=== PATIENT | male | born 1960 | race Caucasian/White ===

== ENCOUNTER 2020-09-07 10:21 | Emergency (ER) | payer SELFPAY ==
[2020-09-07] MEDS ORDERED: NA CHLORIDE 0.9% 500 ML ONE (12:06)
[2020-09-07] MEDS ORDERED: FOLIC ACID 5 MG/ML VIAL ONE (12:09)
--- NOTE | 2020-09-07 12:12 | RAD REPORT ---
EXAM DESCRIPTION: CT - Head Brain Wo Cont - 09/07/2020 11:53 am CLINICAL HISTORY: Visual disturbances;Headache COMPARISON: No comparisons TECHNIQUE: Axial 5 mm thick images of the head were obtained without IV contrast. All CT scans are performed using dose optimization technique as appropriate and may include automated exposure control or mA/KV adjustment according to patient size. FINDINGS: No intracranial hemorrhage, mass, edema or shift of mid-line structures. No acute infarcti on changes seen. No abnormal extra-axial fluid collections. Ventricles are normal. Mastoid air cells and visualized portions of the paranasal sinuses are clear. No acute bony findings. IMPRESSION: Negative non-contrast CT head examination.
[2020-09-07 12:30] LABS: Absolute Lymphocytes (CBC) 1.4 K/uL (0.7-4.9); Basophils % 0.8 % (0-1.3); Hematocrit 48.5 % (39.6-49.0); Lymphocytes % 19.3 % (15.3-44.8); MPV 8.7 fL (7.6-11.3); Protime INR 1.19; RBC Red Blood Cell Count 5.36 M/uL (4.33-5.43)
[2020-09-07 12:44] LABS: ALT/SGPT 29 U/L (12-78); AST/SGOT 13 U/L (15-37); Albumin 3.7 g/dL (3.4-5.0); Alkaline Phosphatase 66 U/L (45-117); BUN Blood Urea Nitrogen 18 mg/dL (7-18); Bicarbonate 32 mmol/L (21-32); Bilirubin Direct 0.2 mg/dL (0-0.2); Bilirubin Total 0.6 mg/dL (0.2-1.0); Glucose Level 101 mg/dL (74-106); Magnesium 2.3 mg/dL (1.8-2.4); NT PRO-BNP 273 pg/mL (<125); Potassium 3.4 mmol/L (3.5-5.1); Protein, Total 7.3 g/dL (6.4-8.2); Sodium Level 141 mmol/L (136-145); Troponin (Emerg Dept Use Only) < 0.02 ng/mL (0.0-0.045)
--- NOTE | 2020-09-07 13:05 | RAD REPORT ---
EXAM DESCRIPTION: RAD - Chest Single View - 09/07/2020 12:57 pm CLINICAL HISTORY: COUGH Chest pain. COMPARISON: <Comparisons> FINDINGS: Portable technique limits examination quality. The lungs are grossly clear. The heart is normal in size. No displaced fractures.Sternotomy wires pre sent. IMPRESSION: No acute intrathoracic process suspected.
[2020-09-07] MEDS ORDERED: ASPIRIN 81 MG CHEWABLE TABLET ONE (13:55)
[2020-09-07] MEDS ORDERED: SMZ./TMP. 800/160 MG TABLET ONE (13:56)
[2020-09-07] MEDS ORDERED: DOXYCYCLINE 100 MG CAP PO ONE (13:56)
--- NOTE | 2020-09-07 14:02 | RAD REPORT ---
EXAM DESCRIPTION: MRI - Brain Wo Cont - 09/07/2020 1:53 pm CLINICAL HISTORY: DIPLOPIA;Headache Headache, drowsiness COMPARISON: Head Brain Wo Cont dated 09/07/2020 TECHNIQUE: Multi-sequence, multiplanar MR imaging of the brain was performed without contrast. FINDINGS: No intracranial hemorrhage, hydrocephalus or extra-axial fluid collections. No edema or sh ift of midline structures. No findings to suspect brain mass. DWI is negative for acute CVA. Midline structures are normally formed. 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 Mastoid air cells and paranasal sinuses are clear. IMPRESSION: Negative for acute CVA or other acute intracranial. 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
--- NOTE | 2020-09-07 14:28 | ER ---
Nurse's Notes [facility] Name: Ravi Sanchez Age: 59 yrs Sex: Male : 1960 Arrival Date: 09/07/2020 Time: 10:23 Bed 19 Private MD: Diagnosis: Cellulitis and acute lymphangitis of other sites-right scalp;Occlusion and stenosis of right carotid artery-internal;Diplopia;Obesity, unspecified;Tobacco abuse counseling;Tobacco use Presentation: 09/07 10:45 Chief complaint: Patient states: "I just want to get this checked out that is growing sv on the side of my head for a few weeks now." Denies injury. Reports yesterday he had double vision but none today. Coronavirus screen: Client denies travel out of the [place] in the last 14 days. At this time, the client does not indicate any symptoms associated with coronavirus-19. Ebola Screen: No symptoms or risks identified at this time. Risk Assessment: Do you want to hurt yourself or someone else? Patient reports no desire to harm self or others. Onset of symptoms was August 2020. 10:45 Method Of Arrival: Ambulatory sv 10:45 Acuity: SAMY 4 sv 10:46 Initial Sepsis Screen: Does the patient meet any 2 criteria? No. Patient's initial sv sepsis screen is negative. Does the patient have a suspected source of infection? No. Patient's initial sepsis screen is negative. Triage Assessment: 10:48 General: Appears in no apparent distress. comfortable, Behavior is calm, cooperative, sv appropriate for age. Neuro: Level of Consciousness is awake, alert, obeys commands, Oriented to person, place, time, situation, Gait is steady. Respiratory: Respiratory effort is even, unlabored. Historical: - Allergies: 10:46 PENICILLINS; sv - Immunization history:: Client reports having NOT received the Covid vaccine. - Social history:: Smoking status: Patient reports the use of cigarette tobacco products, smokes 1.5 packs per day. - Family history:: not pertinent. Screenin:22 Abuse screen: Denies threats or abuse. Nutritional screening: No deficits noted. ap3 Tuberculosis screening: No symptoms or risk factors identified. Fall Risk None identified. Assessment: 11:20 General: Appears in no apparent distress. comfortable, Behavior is calm, cooperative, ap3 appropriate for age. Pain: Denies pain. Neuro: Level of Consciousness is awake, alert, obeys commands, Oriented to person, place, time, situation, Gait is steady. Cardiovascular: Capillary refill < 3 seconds. Respiratory: Airway is patent Respiratory effort is even, unlabored, Respiratory pattern is regular, symmetrical. GI: No signs and/or symptoms were reported involving the gastrointestinal system. : No signs and/or symptoms were reported regarding the genitourinary system. EENT: No signs and/or symptoms were reported regarding the EENT system. Derm: Skin is pink, warm \\T\\ dry. Wound noted right temporal area Wound is reddened raised area. Musculoskeletal: No signs and/or symptoms reported regarding the musculoskeletal system. 12:23 Reassessment: left arm BP 153/80 with a pulse of 57, right arm BP 153/90 with a pulse ap3 of 66. 14:50 General: PATIENT WENT TO PERSONAL VEHICLE TO GET MEDICATION LIST. ap3 Vital Signs: 10:46 BP 153 / 80; Pulse 77; Resp 18; Temp 98.7; Pulse Ox 99% ; Weight 120.2 kg; Height 6 ft. sv 2 in. (187.96 cm); 12:19 BP 153 / 90; Pulse 66; Pulse Ox 98% on R/A; Pain 0/10; ap3 10:46 Body Mass Index 34.02 (120.20 kg, 187.96 cm) sv [place] Coma Score: 11:47 Eye Response: spontaneous(4). Verbal Response: oriented(5). Motor Response: obeys [facility] commands(6). Total: 15. NIH Stroke Scale Scores: 14:22 NIHSS Score: 0 [facility] ED Course: 10:23 Patient arrived in ED. mr 10:45 Arm band placed on. sv 10:46 Triage completed. sv 11:11 Dayan Montenegro, RN is Primary Nurse. ap3 11:23 Patient has correct armband on for positive identification. Bed in low position. Call ap3 light in reach. Side rails up X 1. Pulse ox on. NIBP on. Door closed. Noise minimized. 11:29 Paresh Davies MD is Attending Physician. [facility] 11:44 EKG done, by ED staff, reviewed by Paresh Davies MD. [facility] 11:50 Inserted saline lock: 20 gauge in left antecubital area, using aseptic technique. Blood ap3 collected. 11:52 CT Head Brain wo Cont In Process Unspecified. EDMS 12:57 XRAY Chest (1 view) In Process Unspecified. EDMS 13:09 Patient moved to MRI via stretcher. ap3 13:53 Brain Wo Cont In Process Unspecified. EDMS 14:27 Ji Monterroso MD is Referral Physician. monika 14:27 Hipolito Morfin MD is Referral Physician. monika 15:11 Hipolito Morfin MD is Referral Physician. monika 15:32 No provider procedures requiring assistance completed. IV discontinued, intact, ap3 bleeding controlled, No redness/swelling at site. Pressure dressing applied. Administered Medications: 12:17 Drug: NS 0.9% 500 ml Route: IV; Rate: bolus; Site: left antecubital; ap3 15:34 Follow up: Response: No adverse reaction; IV Status: Completed infusion ap3 12:17 Drug: foLIC Acid 1 mg Route: IVPB; Site: left antecubital; ap3 15:34 Follow up: Response: No adverse reaction ap3 15:34 Follow up: IV Status: Completed infusion ap3 14:19 Not Given (Patient Refused): Aspirin Chewable Tablet 324 mg PO once; 81 mg tablets x 4 ap3 14:20 Drug: Bactrim (trimethoprim-sulfamethoxazole) (160 mg-800 mg (DS) 1 tablet Route: PO; ap3 15:18 Follow up: Response: No adverse reaction ap3 14:20 Drug: Doxycycline 100 mg Route: PO; ap3 15:18 Follow up: Response: No adverse reaction ap3 15:17 Not Given (Patient Refused): PlaVIX (clopidogrel) 75 mg PO once ap3 15:17 Not Given (Patient Refused): Lipitor (atorvastatin) 20 mg PO once ap3 15:18 Not Given (Patient Refused): Potassium Effervescent Tablet 25 mEq PO once; dissolve in ap3 4 ounces of water or juice 15:31 Drug: PlaVIX (clopidogrel) 75 mg Route: PO; ap3 15:31 Follow up: Response: No adverse reaction ap3 Outcome: 14:27 Discharge ordered by . monika 14:30 ER care complete, transfer ordered by . monika 15:32 AMA AMA form signed ap3 15:32 Condition: stable 15:32 Discharge instructions given to patient, Instructed on follow up and referral plans. the need for transfer, medication usage, Demonstrated understanding of instructions, follow-up care, medications, Prescriptions given X 4. 15:35 Patient left the ED. ap3 NIH Stroke Scale - NIH Stroke Score Date: 09/07/2020 Time: 14:22 Total Score = 0 1a. Level of Consciousness (LOC) - 0(Alert) 1b. Level of Consciousness (LOC) (Year \\T\\ Age) - 0(Both) 1c. LOC Commands (Open \\T\\ Closes Eyes/Valve Setter) - 0(Both) 2. Best Gaze (Lateral Gaze Paresis) - 0(Normal) 3. Visual Field Loss - 0(No visual loss) 4. Facial Palsy - 0(Normal) 5a. Left Arm: Motor (10-second hold) - 0(No drift) 5b. Right Arm: Motor (10-second hold) - 0(No drift) 6a. Left Leg: Motor (5-second hold - always test supine) - 0(No drift) 6b. Right Leg: Motor (5-second hold - always test supine) - 0(No drift) 7. Limb Ataxia (finger/nose \\T\\ heel/silver - test with eyes open) - 0(Absent) 8. Sensory Loss (pinprick arms/legs/face) - 0(Normal) 9. Best Language: Aphasia (description/naming/reading) - 0(No aphasia) 10. Dysarthria (speech clarity - read or repeat words) - 0(Normal) 11. Extinction and Inattention (visual/tactile/auditory/spatial/personal) - 0(No abnormality) Initials: monika Signatures: Dispatcher [employer] Stephenie Pagan RN RN sv Anderson, Corey, MD MD cha Rivera, Roshni mr Liu Candace 5 Dayan Montenegro RN RN ap3 Corrections: (The following items were deleted from the chart) 10:48 10:45 Chief complaint: Patient states: "I just want to get this checked out sv that is growing on the side of my head for a few weeks now." Denies injury sv 11:04 10:46 Pulse 77bpm; Resp 18bpm; Pulse Ox 99%; Temp 98.7F; 120.2 kg; Height 6 ft. sv 2 in.; BMI: 34.0; sv
--- NOTE | 2020-09-07 14:28 | EDPHYS ---
Physician Documentation [facility] Name: Ravi Sanchez Age: 59 yrs Sex: Male : 1960 Arrival Date: 09/07/2020 Time: 10:23 Bed 19 Private MD: ALICIA Physician Paresh Davies HPI: 09/07 11:40 This 59 yrs old Male presents to ER via Ambulatory with complaints of Lump on monika Head. 11:40 The patient complains of pain to the right buddhism, right frontal area and right monika temporal area. The patient describes the headache as constant. Onset: The symptoms/episode began/occurred 2 day(s) ago. The patient's problem is reported as weakness, DOUBLE VISION 15 MIN YESTERDAY. Onset: The symptoms/episode began/occurred 1 day(s) ago. Duration: The episodes are intermittent. The symptoms are alleviated by nothing. The symptoms are aggravated by nothing. Associated signs and symptoms: Pertinent positives: double vision. Historical: - Allergies: 10:46 PENICILLINS; sv - Immunization history:: Client reports having NOT received the Covid vaccine. - Social history:: Smoking status: Patient reports the use of cigarette tobacco products, smokes 1.5 packs per day. - Family history:: not pertinent. ROS: 11:40 Constitutional: Negative for fever, chills, and weight loss, Eyes: Negative for injury, monika pain, redness, and discharge, ENT: Negative for injury, pain, and discharge, Neck: Negative for injury, pain, and swelling, Cardiovascular: Negative for chest pain, palpitations, and edema, Respiratory: Negative for shortness of breath, cough, wheezing, and pleuritic chest pain, Abdomen/GI: Negative for abdominal pain, nausea, vomiting, diarrhea, and constipation, Back: Negative for injury and pain, : Negative for injury, bleeding, discharge, and swelling, MS/Extremity: Negative for injury and deformity, Neuro: Negative for headache, weakness, numbness, tingling, and seizure, Psych: Negative for depression, anxiety, suicide ideation, homicidal ideation, and hallucinations, Allergy/Immunology: Negative for hives, rash, and allergies, Endocrine: Negative for neck swelling, polydipsia, polyuria, polyphagia, and marked weight changes, Hematologic/Lymphatic: Negative for swollen nodes, abnormal bleeding, and unusual bruising. 11:40 Skin: Positive for erythema, swelling, of the right frontal area and right buddhism. Exam: 11:40 Constitutional: This is a well developed, well nourished patient who is awake, alert, monika and in no acute distress. Eyes: Pupils equal round and reactive to light, extra-ocular motions intact. Lids and lashes normal. Conjunctiva and sclera are non-icteric and not injected. Cornea within normal limits. Periorbital areas with no swelling, redness, or edema. ENT: Nares patent. No nasal discharge, no septal abnormalities noted. Tympanic membranes are normal and external auditory canals are clear. Oropharynx with no redness, swelling, or masses, exudates, or evidence of obstruction, uvula midline. Mucous membranes moist. Neck: Trachea midline, no thyromegaly or masses palpated, and no cervical lymphadenopathy. Supple, full range of motion without nuchal rigidity, or vertebral point tenderness. No Meningismus. Chest/axilla: Normal chest wall appearance and motion. Nontender with no deformity. No lesions are appreciated. Cardiovascular: Regular rate and rhythm with a normal S1 and S2. No gallops, murmurs, or rubs. Normal PMI, no JVD. No pulse deficits. Respiratory: Lungs have equal breath sounds bilaterally, clear to auscultation and percussion. No rales, rhonchi or wheezes noted. No increased work of breathing, no retractions or nasal flaring. Abdomen/GI: Soft, non-tender, with normal bowel sounds. No distension or tympany. No guarding or rebound. No evidence of tenderness throughout. Back: No spinal tenderness. No costovertebral tenderness. Full range of motion. Male : Normal genitalia with no discharge or lesions. Skin: Warm, dry with normal turgor. Normal color with no rashes, no lesions, and no evidence of cellulitis. MS/ Extremity: Pulses equal, no cyanosis. Neurovascular intact. Full, normal range of motion. Neuro: Awake and alert, GCS 15, oriented to person, place, time, and situation. Cranial nerves II-XII grossly intact. Motor strength 5/5 in all extremities. Sensory grossly intact. Cerebellar exam normal. Normal gait. Psych: Awake, alert, with orientation to person, place and time. Behavior, mood, and affect are within normal limits. 11:40 Head/face: Noted is erythema, that is mild, of the right buddhism, right frontal area and right temporal area. 11:40 Eyes: Periorbital structures: appear normal, no acute changes, Pupils: no acute changes, equal, round, and reactive to light and accomodation, Extraocular movements: intact throughout, Conjunctiva: normal, no acute changes, Corneas: are normal, no acute changes, Sclera: no appreciated abnormality, no acute changes, Anterior chamber: normal, no acute changes, Lids and lashes: appear normal, no acute changes, funduscopic exam reveals no obvious abnormalities, no acute changes, Visual shirley: are intact, no acute changes, Nystagmus: nystagmus with fast component noted, bilaterally. 11:51 Radiologist reports: SEE REPORT monika 12:10 ECG was reviewed by the Attending Physician. [facility] Vital Signs: 10:46 BP 153 / 80; Pulse 77; Resp 18; Temp 98.7; Pulse Ox 99% ; Weight 120.2 kg; Height 6 ft. sv 2 in. (187.96 cm); 12:19 BP 153 / 90; Pulse 66; Pulse Ox 98% on R/A; Pain 0/10; ap3 10:46 Body Mass Index 34.02 (120.20 kg, 187.96 cm) sv NIH Stroke Scale Scores: 14:22 NIHSS Score: 0 monika Mariela Coma Score: 11:47 Eye Response: spontaneous(4). Verbal Response: oriented(5). Motor Response: obeys [facility] commands(6). Total: 15. MDM: 11:29 Patient medically screened. monika 11:47 Differential diagnosis: cluster headache, cerebral vascular accident, hypertensive monika headache, hyponatremia, neoplasm, subdural hematoma, tension headache. Data reviewed: vital signs, nurses notes, lab test result(s), EKG, radiologic studies, CT scan, MRI, plain films. Data interpreted: radiation monitor: not applicable for this patient encounter. Pulse oximetry: on room air is 99 %. Test interpretation: by ED physician or midlevel provider: ECG, plain radiologic studies. Counseling: I had a detailed discussion with the patient and/or guardian regarding: the historical points, exam findings, and any diagnostic results supporting the discharge/admit diagnosis, lab results, radiology results. 09/07 11:39 Order name: Basic Metabolic Panel; Complete Time: 13:23 [facility] 09/07 11:39 Order name: CBC with Diff; Complete Time: 13:23 [facility] 09/07 11:39 Order name: LFT's; Complete Time: 13:23 [facility] 09/07 11:39 Order name: Magnesium; Complete Time: 13:23 [facility] 09/07 11:39 Order name: NT PRO-BNP; Complete Time: 13:23 [facility] 09/07 11:39 Order name: PT-INR; Complete Time: 13:23 [facility] 09/07 11:39 Order name: Troponin (emerg Dept Use Only); Complete Time: 13:23 [facility] 09/07 11:39 Order name: XRAY Chest (1 view); Complete Time: 13:23 [facility] 09/07 11:39 Order name: CT Head Brain wo Cont; Complete Time: 13:23 [facility] 09/07 12:58 Order name: Brain Wo Cont; Complete Time: 14:20 EDMS 09/07 14:27 Order name: COVID-19 : Document "Date of Symptom Onset" if Symptomatic. [facility] 09/07 11:39 Order name: EKG; Complete Time: 11:40 [facility] 09/07 11:39 Order name: Cardiac monitoring; Complete Time: 11:44 [facility] 09/07 11:39 Order name: EKG - Nurse/Tech; Complete Time: 12:18 [facility] 09/07 11:39 Order name: IV Saline Lock; Complete Time: 12:18 [facility] 09/07 11:39 Order name: Labs collected and sent; Complete Time: 12:18 [facility] 09/07 11:39 Order name: O2 Per Protocol; Complete Time: 11:43 [facility] 09/07 11:39 Order name: O2 Sat Monitoring; Complete Time: 11:43 [facility] 09/07 11:39 Order name: Bilateral blood pressure; Complete Time: 12:18 [facility] EC:10 Rate is 68 beats/min. Rhythm is regular. QRS [place] is Normal. NM interval is normal. QRS monika interval is normal. QT interval is normal. No Q waves. T waves are Normal. No ST changes noted. Clinical impression: Normal ECG and No evidence of ischemia. Interpreted by me. Reviewed by me. Administered Medications: 12:17 Drug: NS 0.9% 500 ml Route: IV; Rate: bolus; Site: left antecubital; ap3 15:34 Follow up: Response: No adverse reaction; IV Status: Completed infusion ap3 12:17 Drug: foLIC Acid 1 mg Route: IVPB; Site: left antecubital; ap3 15:34 Follow up: Response: No adverse reaction ap3 15:34 Follow up: IV Status: Completed infusion ap3 14:19 Not Given (Patient Refused): Aspirin Chewable Tablet 324 mg PO once; 81 mg tablets x 4 ap3 14:20 Drug: Bactrim (trimethoprim-sulfamethoxazole) (160 mg-800 mg (DS) 1 tablet Route: PO; ap3 15:18 Follow up: Response: No adverse reaction ap3 14:20 Drug: Doxycycline 100 mg Route: PO; ap3 15:18 Follow up: Response: No adverse reaction ap3 15:17 Not Given (Patient Refused): PlaVIX (clopidogrel) 75 mg PO once ap3 15:17 Not Given (Patient Refused): Lipitor (atorvastatin) 20 mg PO once ap3 15:18 Not Given (Patient Refused): Potassium Effervescent Tablet 25 mEq PO once; dissolve in ap3 4 ounces of water or juice 15:31 Drug: PlaVIX (clopidogrel) 75 mg Route: PO; ap3 15:31 Follow up: Response: No adverse reaction ap3 Disposition: 09/07/20 15:11 Patient has left against medical advice. Impression: Cellulitis and acute lymphangitis of other sites - right scalp, Occlusion and stenosis of right carotid artery - internal, Diplopia, Obesity, unspecified, Tobacco abuse counseling, Tobacco use. - Patients states they are going to Home. - Condition is Fair. - Discharge Instructions: Diplopia, Obesity, Adult, Steps to Quit Smoking, Smoking Hazards, Stroke Prevention, Angiogram, Steps to Quit Smoking, [id number], Aspirin and Your Heart, Stroke Prevention, [id number]. - Prescriptions for Eliquis 5 mg Oral tablet - take 1 tablet by ORAL route 2 times per day; 30 tablet. Lipitor 40 mg Oral tablet - take 2 tablet by ORAL route once daily; 40 tablet. Plavix 75 mg Oral Tablet - take 1 tablet by ORAL route once daily; 20 tablet. Doxycycline Hyclate 100 mg Oral Tablet - take 1 tablet by ORAL route every 12 hours; 20 tablet. Bactrim DS 800- 160 mg Oral Tablet - take 1 tablet by ORAL route every 12 hours for 10 days; 20 tablet. Follow up: Private Physician; When: Upon discharge from the Emergency Department; Reason: Recheck today's complaints, Continuance of care, Re-evaluation by your physician. Follow up: Hipolito Morfin MD; When: Today; Reason: Recheck today's complaints, Re-evaluation by your physician. - Problem is new. - Symptoms have improved. NIH Stroke Scale - NIH Stroke Score Date: 09/07/2020 Time: 14:22 Total Score = 0 1a. Level of Consciousness (LOC) - 0(Alert) 1b. Level of Consciousness (LOC) (Year \\T\\ Age) - 0(Both) 1c. LOC Commands (Open \\T\\ Closes Eyes/Finishing Department Supervisor) - 0(Both) 2. Best Gaze (Lateral Gaze Paresis) - 0(Normal) 3. Visual Field Loss - 0(No visual loss) 4. Facial Palsy - 0(Normal) 5a. Left Arm: Motor (10-second hold) - 0(No drift) 5b. Right Arm: Motor (10-second hold) - 0(No drift) 6a. Left Leg: Motor (5-second hold - always test supine) - 0(No drift) 6b. Right Leg: Motor (5-second hold - always test supine) - 0(No drift) 7. Limb Ataxia (finger/nose \\T\\ heel/silver - test with eyes open) - 0(Absent) 8. Sensory Loss (pinprick arms/legs/face) - 0(Normal) 9. Best Language: Aphasia (description/naming/reading) - 0(No aphasia) 10. Dysarthria (speech clarity - read or repeat words) - 0(Normal) 11. Extinction and Inattention (visual/tactile/auditory/spatial/personal) - 0(No abnormality) Initials: monika Signatures: Dispatcher [employer] EDMO Stephenie Way RN RN sv Anderson, Corey, MD MD cha Prokisch, Amanda, RN RN ap3 Corrections: (The following items were deleted from the chart) 12:58 11:40 MR STROKE PROTOCOL+MRI.RAD.BRZ ordered. EDMO EDMS 12:58 12:58 Brain With Cont ordered. EDMO EDMS 14:27 14:27 09/07/2020 14:27 Discharged to Home. Impression: Cellulitis and acute monika lymphangitis of other sites - scalp, right side; Diplopia; Tobacco abuse counseling; Tobacco use; Hypokalemia. Condition is Stable. Discharge Instructions: Cellulitis, Adult, Diplopia, Cellulitis, Adult, [id number], Tobacco Use Disorder, Aspirin and Your Heart, Steps to Quit Smoking, Smoking Hazards, Potassium Content of Foods, Hypokalemia. Prescriptions for Doxycycline Hyclate 100 mg Oral Tablet - take 1 tablet by ORAL route every 12 hours; 20 tablet, Bactrim DS 800-160 mg Oral Tablet - take 1 tablet by ORAL route every 12 hours for 10 days; 20 tablet. and Forms are Medication Reconciliation Form, Thank You Letter, Antibiotic Education, Prescription Opioid Use. Follow up: Private Physician; When: 2 - 3 days; Reason: Recheck today's complaints, Continuance of care, Re-evaluation by your physician. Follow up: Ji Monterroso; When: 2 - 3 days; Reason: Recheck today's complaints, Continuance of care, Re-evaluation by your physician. Follow up: Hipolito Morfin; When: 2 - 3 days; Reason: Recheck today's complaints, Re-evaluation by your physician. Problem is new. Symptoms have improved. monika 14:45 14:30 09/07/2020 14:30 Transfer ordered to [facility]. Diagnosis is Diplopia; Cellulitis and acute lymphangitis of face and neck - scalp, right side; Hypokalemia; Tobacco abuse counseling; Tobacco use. Reason for transfer: Higher level of care. Accepting physician is to stroke team , [facility]. Condition is Stable. Problem is new. Symptoms have improved. monika 15:35 15:11 09/07/2020 15:11 Patients has left against medical advice. Impression: ap3 Cellulitis and acute lymphangitis of other sites - right scalp; Occlusion and stenosis of right carotid artery - internal; Diplopia; Obesity, unspecified; Tobacco abuse counseling; Tobacco use. Patient states they are going to Home. Condition is Fair. Prescriptions for Doxycycline Hyclate 100 mg Oral Tablet - take 1 tablet by ORAL route every 12 hours; 20 tablet, Bactrim DS 800-160 mg Oral Tablet - take 1 tablet by ORAL route every 12 hours for 10 days; 20 tabletFollow up: Private Physician; When: Upon discharge from the Emergency Department; Reason: Recheck today's complaints, Continuance of care, Re-evaluation by your physician. Follow up: Hipolito Morfin; When: Today; Reason: Recheck today's complaints, Re-evaluation by your physician. Problem is new. Symptoms have improved. monika
[2020-09-07] MEDS ORDERED: CLOPIDOGREL 75 MG TABLET ONE (14:47)
[2020-09-07] MEDS ORDERED: ATORVASTATIN 20 MG TAB ONE (14:47)
[2020-09-07] MEDS ORDERED: POTASSIUM 25 MEQ EFFERV TAB ONE (14:48)
[2020-09-07 15:45] VITALS: TEMP 98.7
[2020-09-07 15:46] VITALS: BP 153/90; O2SAT 98
== END 2020-09-07 15:35 | disposition left against medical advice (07) ==
LOC: ER 10:21
DX: L03.811 Cellulitis of head [any part, except face] (principal); L03.891 Acute lymphangitis of head [any part, except face]; I65.21 Occlusion and stenosis of right carotid artery; H53.2 Diplopia; E66.9 Obesity, unspecified; Z71.6 Tobacco abuse counseling; Z72.0 Tobacco use; Z20.822 Contact with and (suspected) exposure to COVID-19; Z88.0 Allergy status to penicillin
CPT/HCPCS: 36415; 70450; 70551; 71045; 80048; 80076; 83735; 83880; 84484; 85025; 85610; 93005; 96365; 96366; 99284; J7040

== ENCOUNTER 2020-09-08 08:02 | Emergency (ER) | payer SELFPAY ==
[2020-09-08] MEDS ORDERED: NA CHLORIDE 0.9% 1,000 ML ONE (08:54)
[2020-09-08 08:56] LABS: Protime INR 1.29
--- NOTE | 2020-09-08 09:07 | RAD REPORT ---
EXAM DESCRIPTION: RAD - Chest Single View - 09/08/2020 8:49 am CLINICAL HISTORY: COUGH Chest pain. COMPARISON: Chest Single View dated 09/07/2020 FINDINGS: Portable technique limits examination quality. Mild interstitial pulmonary edema seen. The heart is upper limit normal in size. Sternotomy wires pre sent. IMPRESSION: Mild CHF.
--- NOTE | 2020-09-08 09:09 | RAD REPORT ---
EXAM DESCRIPTION: CT - Head angio - 09/08/2020 8:52 am CLINICAL HISTORY: Visual disturbances;TIA Headache, drowsiness, CVA symptomology COMPARISON: Head Brain Wo Cont dated 09/07/2020; Brain Wo Cont dated 09/07/2020 TECHNIQUE: CT angiography of the head was performed with MIPs. All CT scans are performed using dose optimization technique as appropriate and may include automated exposure control or mA/KV adjustment according to patient size. FINDINGS: No evidence of aneurysm is detected. The distal right internal carotid artery and intracra nial right internal carotid artery demonstrate chronic occlusion. Flow to the right-sided circulation is noted through patent anterior communicating artery. . There is occlusion of the distal left vertebral artery. Right vertebral artery and basilar artery are patent. The visualized dural venous sinuses are patent. IMPRESSION: Evidence of chronic occlusion of the right distal internal carotid artery and right intr acranial ICA. Occlusion of the distal left vertebral artery also present.
[2020-09-08 09:10] LABS: ALT/SGPT 29 U/L (12-78); AST/SGOT 13 U/L (15-37); Albumin 3.6 g/dL (3.4-5.0); Alkaline Phosphatase 65 U/L (45-117); BUN Blood Urea Nitrogen 20 mg/dL (7-18); Bicarbonate 30 mmol/L (21-32); Bilirubin Direct 0.2 mg/dL (0-0.2); Bilirubin Total 0.7 mg/dL (0.2-1.0); Glucose Level 128 mg/dL (74-106); Magnesium 2.2 mg/dL (1.8-2.4); NT PRO-BNP 175 pg/mL (<125); Potassium 3.5 mmol/L (3.5-5.1); Protein, Total 7.2 g/dL (6.4-8.2); Sodium Level 140 mmol/L (136-145); Troponin (Emerg Dept Use Only) < 0.02 ng/mL (0.0-0.045)
--- NOTE | 2020-09-08 09:14 | RAD REPORT ---
EXAM DESCRIPTION: CT - Neck Angio - 09/08/2020 8:53 am CLINICAL HISTORY: diplopia Headache, drowsiness COMPARISON: No comparisons TECHNIQUE: CT angiography of the neck vessels was performed with MIPs. All CT scans are performed using dose optimization technique as appropriate and may include automated exposure control or mA/KV adjustment according to patient size. FINDINGS: A left aortic arch is identified with normal three vessel configuration of the great vesse ls. Heavy hard plaque is seen involving the right carotid bulb. The right intracranial artery shows no bl ood flow throughout the neck as well as intracranially compatible with chronic occlusion. There is mi ld narrowing of the left carotid bulb. Distal left vertebral artery demonstrates chronic occlusion. Right vertebral artery and basilar arter y appear patent. IMPRESSION: Chronic occlusion of the right internal carotid artery is noted. Chronic occlusion distal left vertebral artery also seen.
[2020-09-08 09:41] LABS: Absolute Lymphocytes (CBC) 1.1 K/uL (0.7-4.9); Basophils % 0.6 % (0-1.3); Hematocrit 49.6 % (39.6-49.0); Lymphocytes % 16.9 % (15.3-44.8); MPV 9.2 fL (7.6-11.3)
--- NOTE | 2020-09-08 10:25 | ER ---
Nurse's Notes [facility] Name: Ravi Sanchez Age: 59 yrs Sex: Male : 1960 Arrival Date: 09/08/2020 Time: 08:03 Bed 8 Private MD: Diagnosis: Diplopia;Occlusion and stenosis of right carotid artery-internal;Occlusion and stenosis of left vertebral artery;Cellulitis of head [any part, except face]-right scalp;Type 2 diabetes mellitus;Hyperlipidemia, unspecified;Tobacco abuse counseling;Tobacco use;Obesity, unspecified Presentation: 09/08 08:12 Chief complaint: Patient states: "I was here last night/yesterday, and I was told I jd3 needed to have my carotid artery taken a look at in [place], but I had things I needed to do so I left AMA. Well I am back now to be transferred or get it taken care of now.". Coronavirus screen: At this time, the client does not indicate any symptoms associated with coronavirus-19. Ebola Screen: Patient negative for fever greater than or equal to 101.5 degrees Fahrenheit, and additional compatible Ebola Virus Disease symptoms. Initial Sepsis Screen: Does the patient meet any 2 criteria? No. Patient's initial sepsis screen is negative. Does the patient have a suspected source of infection? No. Patient's initial sepsis screen is negative. Risk Assessment: Do you want to hurt yourself or someone else? Patient reports no desire to harm self or others. Onset of symptoms was September 07, 2020. 08:12 Method Of Arrival: Ambulatory jd3 08:12 Acuity: SAMY 3 jd3 Historical: - Allergies: 08:23 PENICILLINS; jd3 - Home Meds: 08:23 atorvastatin oral oral [Active]; Eliquis oral oral [Active]; Aspirin Oral [Active]; jd3 Verapamil Oral [Active]; Metoprolol Tartrate Oral [Active]; metformin 500 mg Oral tab [Active]; Hydrochlorothiazide Oral [Active]; potassium chloride Oral [Active]; - PMHx: 08:23 Diabetes - NIDDM; Hypertension; High Cholesterol; jd3 - PSHx: 08:23 triple bipass; left knee; left hand; jd3 - Immunization history:: Adult Immunizations up to date. - Social history:: Smoking status: Patient reports the use of cigarette tobacco products, smokes two packs cigarettes per day. - Family history:: not pertinent. Screenin:37 Abuse screen: Denies threats or abuse. Denies injuries from another. Nutritional jl7 screening: No deficits noted. Tuberculosis screening: No symptoms or risk factors identified. Fall Risk IV access (20 points). Total Brady Fall Scale indicates No Risk (0-24 pts). Assessment: 08:37 General: Appears in no apparent distress. uncomfortable, Behavior is calm, cooperative, jl7 appropriate for age. Pain: Denies pain. Neuro: Level of Consciousness is awake, alert, obeys commands, Oriented to person, place, time, situation. Cardiovascular: Denies chest pain, Patient's skin is warm and dry. Respiratory: Airway is patent Respiratory effort is even, unlabored, Respiratory pattern is regular, symmetrical, Denies shortness of breath. GI: Abdomen is round non-distended, Patient currently denies abdominal pain, diarrhea, nausea, vomiting. Derm: Skin is pink, warm \\T\\ dry. Musculoskeletal: Swelling present in right religious. 10:00 Reassessment: Patient appears in no apparent distress at this time. No changes from jl7 previously documented assessment. Patient and/or family updated on plan of care and expected duration. Pain level reassessed. Patient is alert, oriented x 3, equal unlabored respirations, skin warm/dry/pink. 11:06 Reassessment: Patient appears in no apparent distress at this time. No changes from jl7 previously documented assessment. Patient and/or family updated on plan of care and expected duration. Pain level reassessed. Patient is alert, oriented x 3, equal unlabored respirations, skin warm/dry/pink. 12:42 General: CALLED REPORT TO RECEIVING NURSE, LONNIE PALMA. ap3 Vital Signs: 08:23 BP 141 / 78; Pulse 83; Resp 18 S; Temp 97.3(TE); Pulse Ox 95% on R/A; Weight 120.2 kg jd3 (R); Height 6 ft. 2 in. (187.96 cm) (R); Pain 0/10; 09:11 BP 130 / 83; Pulse 71; Resp 15; Pulse Ox 96% ; Pain 0/10; jl7 10:22 BP 149 / 77; Pulse 70; Resp 15; Pulse Ox 95% ; jl7 11:05 BP 148 / 85; Pulse 75; Resp 15; Pulse Ox 95% ; jl7 12:44 BP 152 / 80; Pulse 69; ap3 12:52 Resp 16; Pulse Ox 96% ; jl7 08:23 Body Mass Index 34.02 (120.20 kg, 187.96 cm) jd3 ED Course: 08:03 Patient arrived in ED. am2 08:05 Paresh Davies MD is Attending Physician. monika 08:14 Triage completed. jd3 08:20 Jono Bowen RN is Primary Nurse. jl7 08:24 Arm band placed on. jd3 08:37 Patient has correct armband on for positive identification. Placed in gown. Bed in low jl7 position. Call light in reach. Side rails up X 1. monitoring coordinator on. Pulse ox on. NIBP on. 08:37 Initial lab(s) drawn, by me, sent to lab. EKG done, by ED staff, reviewed by Paresh Davies MD. Inserted saline lock: 20 gauge in right forearm, using aseptic technique. Blood collected. 08:40 EKG done, by ED staff, reviewed by Paresh Davies MD. 5 08:49 XRAY Chest (1 view) In Process Unspecified. EDMS 08:52 CT Head Angio In Process Unspecified. EDMS 08:53 Neck Angio In Process Unspecified. EDMS 10:[address] Davies with Rosanna Cruz from the [facility] eb Center. 10:[address] Magana the neurologist supply controller for [facility] with Dr. Davies for eb patient transfer consultation. 11:[address] Marcelo the hospitalist supply controller for [facility] with Dr. Davies eb for patient transfer consultation. 11:57 connected the ED doctor supply controller for [facility] with Dr. Davies for patient eb transfer consultation. 12:02 administrative approval given by Rosanna Cruz/ patient has been accepted to [facility] ED/ Dr. Marcelo (Hospitalist) and Dr. Malcolm (ED Doctor) has accepted the patient in transfer/ report to be called to the transfer center at [phone]. 12:52 No provider procedures requiring assistance completed. Patient transferred, IV remains jl7 in place. intact, No redness/swelling at site. Administered Medications: 08:39 Drug: NS 0.9% 500 ml Route: IV; Rate: bolus; Site: right forearm; jl7 09:30 Follow up: Response: No adverse reaction; IV Status: Completed infusion; IV Intake: jl7 500ml 08:39 Drug: NS 0.9% 1000 ml Route: IV; Rate: 125 ml/hr; Site: right forearm; jl7 12:52 Follow up: Response: No adverse reaction; IV Status: Infusion continued upon transfer jl7 11:02 Drug: Ancef (cefazolin) 1 grams Route: IVPB; Site: right forearm; jl7 11:07 Follow up: Response: No adverse reaction; IV Status: Completed infusion jl7 14:05 Drug: PlaVIX (clopidogrel) 75 mg Route: PO; ap3 14:33 Follow up: Response: No adverse reaction ap3 Intake: 09:30 IV: 500ml; Total: 500ml. jl7 Outcome: 10:24 ER care complete, transfer ordered by MD. frank 14:31 Transferred by ground EMS to [facility]. ap3 14:31 Condition: good 14:31 Discharge instructions given to patient, Instructed on the need for transfer, Demonstrated understanding of TRANSFER 14:33 Patient left the ED. ap3 Signatures: Dispatcher [employer] Paresh Reyes MD MD cha Martinez, [facility] Jono Bowen RN RN jl7 Dayan Rao Jonathon, RN RN Dayan Lindsey RN RN ap3 Frances Romeo
--- NOTE | 2020-09-08 10:25 | EDPHYS ---
Physician Documentation [facility] Name: Ravi Sanchez Age: 59 yrs Sex: Male : 1960 Arrival Date: 09/08/2020 Time: 08:03 Bed 8 Private MD: ALICIA Physician Paresh Davies HPI: 09/08 08:32 This 59 yrs old Male presents to ER via Ambulatory with complaints of monika cellulitis/lump on head. 08:32 The patient presents with cellulitis of the right advent. Description: The affected monika area is small, confluent, erythematous. Onset: The symptoms/episode began/occurred 3 day(s) ago. Possible cause(s): unknown. Associated signs and symptoms: The patient has no apparent associated signs or symptoms. The patient presents with dizziness. Onset: The symptoms/episode began/occurred 2 month(s) ago. Modifying factors: The symptoms are alleviated by nothing, the symptoms are aggravated by nothing. Modifying factors: the symptoms are alleviated by nothing, the symptoms are aggravated by nothing. Severity of symptoms: At their worst the symptoms were mild in the emergency department the symptoms are unchanged. 08:32 Context: pt has been having diplopia for 2 months, worsening, lasting 10-15 min. [facility] Historical: - Allergies: 08:23 PENICILLINS; jd3 - Home Meds: 08:23 atorvastatin oral oral [Active]; Eliquis oral oral [Active]; Aspirin Oral [Active]; jd3 Verapamil Oral [Active]; Metoprolol Tartrate Oral [Active]; metformin 500 mg Oral tab [Active]; Hydrochlorothiazide Oral [Active]; potassium chloride Oral [Active]; - PMHx: 08:23 Diabetes - NIDDM; Hypertension; High Cholesterol; jd3 - PSHx: 08:23 triple bipass; left knee; left hand; jd3 - Immunization history:: Adult Immunizations up to date. - Social history:: Smoking status: Patient reports the use of cigarette tobacco products, smokes two packs cigarettes per day. - Family history:: not pertinent. ROS: 08:32 Constitutional: Negative for fever, chills, and weight loss, Eyes: Negative for injury, monika pain, redness, and discharge, ENT: Negative for injury, pain, and discharge, Neck: Negative for injury, pain, and swelling, Cardiovascular: Negative for chest pain, palpitations, and edema, Respiratory: Negative for shortness of breath, cough, wheezing, and pleuritic chest pain, Abdomen/GI: Negative for abdominal pain, nausea, vomiting, diarrhea, and constipation, Back: Negative for injury and pain, : Negative for injury, bleeding, discharge, and swelling, MS/Extremity: Negative for injury and deformity, Psych: Negative for depression, anxiety, suicide ideation, homicidal ideation, and hallucinations, Allergy/Immunology: Negative for hives, rash, and allergies, Endocrine: Negative for neck swelling, polydipsia, polyuria, polyphagia, and marked weight changes, Hematologic/Lymphatic: Negative for swollen nodes, abnormal bleeding, and unusual bruising. 08:32 Skin: Positive for cellulitis, of the face and right advent. Exam: 08:32 Constitutional: This is a well developed, well nourished patient who is awake, alert, monika and in no acute distress. Head/Face: Normocephalic, atraumatic. Eyes: Pupils equal round and reactive to light, extra-ocular motions intact. Lids and lashes normal. Conjunctiva and sclera are non-icteric and not injected. Cornea within normal limits. Periorbital areas with no swelling, redness, or edema. ENT: Nares patent. No nasal discharge, no septal abnormalities noted. Tympanic membranes are normal and external auditory canals are clear. Oropharynx with no redness, swelling, or masses, exudates, or evidence of obstruction, uvula midline. Mucous membranes moist. Neck: Trachea midline, no thyromegaly or masses palpated, and no cervical lymphadenopathy. Supple, full range of motion without nuchal rigidity, or vertebral point tenderness. No Meningismus. Chest/axilla: Normal chest wall appearance and motion. Nontender with no deformity. No lesions are appreciated. Cardiovascular: Regular rate and rhythm with a normal S1 and S2. No gallops, murmurs, or rubs. Normal PMI, no JVD. No pulse deficits. Respiratory: Lungs have equal breath sounds bilaterally, clear to auscultation and percussion. No rales, rhonchi or wheezes noted. No increased work of breathing, no retractions or nasal flaring. Abdomen/GI: Soft, non-tender, with normal bowel sounds. No distension or tympany. No guarding or rebound. No evidence of tenderness throughout. Back: No spinal tenderness. No costovertebral tenderness. Full range of motion. Male : Normal genitalia with no discharge or lesions. MS/ Extremity: Pulses equal, no cyanosis. Neurovascular intact. Full, normal range of motion. Psych: Awake, alert, with orientation to person, place and time. Behavior, mood, and affect are within normal limits. 08:32 Skin: Appearance: Color: normal in color, Temperature: normal temperature, Moisture: normal moisture, petechiae, not noted, ecchymosis, not noted, flushing, not noted, diaphoresis is not appreciated, cellulitis, that is minimal, confluent, on the right advent. 08:41 ECG was reviewed by the Attending Physician. monika Vital Signs: 08:23 BP 141 / 78; Pulse 83; Resp 18 S; Temp 97.3(TE); Pulse Ox 95% on R/A; Weight 120.2 kg jd3 (R); Height 6 ft. 2 in. (187.96 cm) (R); Pain 0/10; 09:11 BP 130 / 83; Pulse 71; Resp 15; Pulse Ox 96% ; Pain 0/10; jl7 10:22 BP 149 / 77; Pulse 70; Resp 15; Pulse Ox 95% ; jl7 11:05 BP 148 / 85; Pulse 75; Resp 15; Pulse Ox 95% ; jl7 12:44 BP 152 / 80; Pulse 69; ap3 12:52 Resp 16; Pulse Ox 96% ; jl7 08:23 Body Mass Index 34.02 (120.20 kg, 187.96 cm) jd3 MDM: 08:05 Patient medically screened. [facility] 08:35 Differential diagnosis: abscess, cellulitis, insect bite. Differential diagnosis: monika cardiac arrhythmia, CVA, generalized weakness, near-syncope, TIA, vertigo. Data reviewed: vital signs, nurses notes, lab test result(s), EKG, radiologic studies. Data interpreted: library monitor: rate is 83 beats/min, rhythm is regular, Pulse oximetry: is not applicable for this patient encounter. Test interpretation: by ED physician or midlevel provider: ECG, plain radiologic studies. Counseling: I had a detailed discussion with the patient and/or guardian regarding: the historical points, exam findings, and any diagnostic results supporting the discharge/admit diagnosis, lab results, radiology results. 10:25 Physician consultation: Hipolito Morfin MD after a discussion of the case, a [facility] recommendation for transfer for higher level of care is made. 09/08 08:16 Order name: Basic Metabolic Panel [facility] 09/08 08:16 Order name: CBC with Diff; Complete Time: 10:16 monika 09/08 08:16 Order name: LFT's [facility] 09/08 08:16 Order name: Magnesium; Complete Time: 10:16 09/08 08:16 Order name: NT PRO-BNP; Complete Time: 10:16 monika 09/08 08:16 Order name: PT-INR; Complete Time: 10:16 monika 09/08 08:16 Order name: Troponin (emerg Dept Use Only); Complete Time: 10:16 [facility] 09/08 08:16 Order name: XRAY Chest (1 view); Complete Time: 10:16 monika 09/08 08:17 Order name: Basic Metabolic Panel; Complete Time: 10:16 [facility] 09/08 08:17 Order name: Liver (Hepatic) Function; Complete Time: 10:16 [facility]TN 09/08 08:26 Order name: CT Head Angio; Complete Time: 10:16 monika 09/08 08:30 Order name: Neck Angio; Complete Time: 10:16 EDTN 09/08 08:16 Order name: EKG; Complete Time: 08:17 09/08 08:16 Order name: Cardiac monitoring; Complete Time: 08:39 09/08 08:16 Order name: EKG - Nurse/Tech; Complete Time: 08:39 09/08 08:16 Order name: IV Saline Lock; Complete Time: 08:39 09/08 08:16 Order name: Labs collected and sent; Complete Time: 08:39 09/08 08:16 Order name: O2 Per Protocol; Complete Time: 08:39 09/08 08:16 Order name: O2 Sat Monitoring; Complete Time: 08:40 [facility] 09/08 10:48 Order name: Diet Regular; Complete Time: 10:49 jl7 EC:41 Rate is 74 beats/min. Rhythm is regular. QRS [place] is Normal. ID interval is normal. QRS monika interval is normal. QT interval is normal. No Q waves. T waves are Normal. No ST changes noted. Clinical impression: Normal ECG and No evidence of ischemia. Interpreted by me. Reviewed by me. Administered Medications: 08:39 Drug: NS 0.9% 500 ml Route: IV; Rate: bolus; Site: right forearm; 7 09:30 Follow up: Response: No adverse reaction; IV Status: Completed infusion; IV Intake: jl7 500ml 08:39 Drug: NS 0.9% 1000 ml Route: IV; Rate: 125 ml/hr; Site: right forearm; 7 12:52 Follow up: Response: No adverse reaction; IV Status: Infusion continued upon transfer jl7 11:02 Drug: Ancef (cefazolin) 1 grams Route: IVPB; Site: right forearm; 7 11:07 Follow up: Response: No adverse reaction; IV Status: Completed infusion jl7 14:05 Drug: PlaVIX (clopidogrel) 75 mg Route: PO; ap3 14:33 Follow up: Response: No adverse reaction ap3 Disposition: 09/08/20 10:24 Transfer ordered to [facility]. Diagnosis are Diplopia, Occlusion and stenosis of right carotid artery - internal, Occlusion and stenosis of left vertebral artery, Cellulitis of head [any part, except face] - right scalp, Type 2 diabetes mellitus, Hyperlipidemia, unspecified, Tobacco abuse counseling, Tobacco use, Obesity, unspecified. - Reason for transfer: Higher level of care. - Accepting physician is to [facility]. - Condition is Stable. - Problem is new. - Symptoms have improved. Critical care time excluding procedures: 10:25 Critical care time: Bedside Care: 20 minutes, Consultation: 15 minutes, Family [facility] Intervention: 10 minutes. Total time: 45 minutes Signatures: Dispatcher [employer] EDParesh Greenwood MD MD cha Leal, Jahala RN RN jl7 Kvng Amanda RN RN jDayan Freeman RN RN ap3 Corrections: (The following items were deleted from the chart) 14:33 10:24 09/08/2020 10:24 Transfer ordered to [facility]. ap3 Diagnosis is Diplopia; Occlusion and stenosis of right carotid artery - internal; Occlusion and stenosis of left vertebral artery; Cellulitis of head [any part, except face] - right scalp; Type 2 diabetes mellitus; Hyperlipidemia, unspecified; Tobacco abuse counseling; Tobacco use; Obesity, unspecified. Reason for transfer: Higher level of care. Accepting physician is to [facility] [place]. Condition is Stable. Problem is new. Symptoms have improved. monika
[2020-09-08] MEDS ORDERED: CEFAZOLIN/SWI 1gm 1 GM/10 ML SYR ONE (11:10)
[2020-09-08] MEDS ORDERED: CLOPIDOGREL 75 MG TABLET ONE (14:20)
[2020-09-08 14:48] VITALS: TEMP 97.3
[2020-09-08 14:53] VITALS: BP 152/80
[2020-09-08 14:54] VITALS: O2SAT 96
== END 2020-09-08 14:33 | disposition short-term general hospital (02) ==
LOC: ER 08:02
DX: I65.21 Occlusion and stenosis of right carotid artery (principal); I65.02 Occlusion and stenosis of left vertebral artery; H53.2 Diplopia; L03.811 Cellulitis of head [any part, except face]; E11.9 Type 2 diabetes mellitus without complications; E78.5 Hyperlipidemia, unspecified; E66.9 Obesity, unspecified; Z68.34 Body mass index [BMI] 34.0-34.9, adult; F17.210 Nicotine dependence, cigarettes, uncomplicated; I10 Essential (primary) hypertension; E78.00 Pure hypercholesterolemia, unspecified; Z95.1 Presence of aortocoronary bypass graft
CPT/HCPCS: 36415; 70496; 70498; 71045; 80048; 80076; 83735; 83880; 84484; 85025; 85610; 93005; 96361; 96374; 99285; J0690; J7030